=== PATIENT | male | born 1945 | race Caucasian/White ===

== ENCOUNTER 2017-03-10 09:52 | Day surgery (SDC) | payer MEDICARE, OTHER ==
[~2017-03-10] VITALS: Ht 185.4 cm; Wt 89.1 kg
[2017-03-10] MEDS ORDERED: IOHEXOL 350 MG/ML 50 ML BTL (for Cath Lab) OTHER ONE (09:53)
[2017-03-10] MEDS ORDERED: ASPIRIN 81 MG CHEW TAB PO SCH (10:15)
[2017-03-10] MEDS ORDERED: POTA10CA PO (10:25)
[2017-03-10] MEDS ORDERED: AMLO10 PO (10:25)
[2017-03-10] MEDS ORDERED: ASPI81CH CHEW (10:25)
[2017-03-10] MEDS ORDERED: ROSU10 PO (10:25)
[2017-03-10] MEDS ORDERED: NEXI40CA PO (10:25)
[2017-03-10] MEDS ORDERED: ADVA250A INH (10:25)
[2017-03-10 10:31] VITALS: BP 150/99; PULSE 87; RESP 18; TEMP 97.5; O2SAT 97
[2017-03-10 10:53] LABS: AUTOMATED NEUTROPHIL # 4.4 TH/MM3 (1.8-7.7); BASOPHIL # 0.1 TH/MM3 (0-0.2); BASOPHIL % 1.3 % (0.0-2.0); EOSINOPHIL # 0.5 TH/MM3 (0-0.4); EOSINOPHIL % 6.7 % (0.0-4.0); HEMATOCRIT 45.8 % (39.0-51.0); HEMO FLAGS DIFF FINAL; LYMPH % 20.4 % (9.0-44.0); LYMPHOCYTE # 1.5 TH/MM3 (1.0-4.8); MEAN CELL VOLUME 98.4 FL (80.0-100.0); MEAN CORPUSCULAR HEMOGLOBIN 33.3 PG (27.0-34.0); MEAN CORPUSCULAR HGB CONC 33.8 % (32.0-36.0); MONO % 11.2 % (0.0-8.0); NEUT % 60.4 % (16.0-70.0); PLATELET COUNT 231 TH/MM3 (150-450); RED BLOOD COUNT 4.66 MIL/MM3 (4.50-5.90); RED CELL DISTRIBUTION WIDTH 12.7 % (11.6-17.2); WHITE BLOOD COUNT 7.3 TH/MM3 (4.0-11.0)
[2017-03-10 11:07] LABS: PROTHROMBIN TIME - PATIENT 10.9 SEC (9.8-11.6)
[2017-03-10 11:35] LABS: BICARBONATE 26.7 MEQ/L (21.0-32.0); POTASSIUM 4.9 MEQ/L (3.5-5.1)
[2017-03-10] MEDS ORDERED: HEPARIN-NS/PF INJ 1,000 ML ONE (12:12)
--- NOTE | 2017-03-10 13:08 | CATHPROC ---
[facility] HIS Report Study Information Study Number Admission Scheduled Start Study Start [id number] Mar 10 2017 9:52AM 03/10/2017 Mar 10 2017 12:06PM [place] Service Cardiac Catheterization Admit Source Facility Department Transfer in from another acute care facility [facility] - [facility] Physician and Clinical Staff Initial Logan Mejia Account Information Clerkandrey Onofre RN, Jori Carlos cathlab, cathlab Recorder Chun Victoria RCIS(BS) Procedures Performed Procedure Location (Site) Vessel Name Coronary Angiograms LCA Left Coronary Coronary Angiograms RCA Right Coronary LV Gram-hand inj. LV LV Ventricle Equipment Time Public Safety Dispatcher Description Size Mfg Part Number Used/Scraped CATHETER, FR5 SWAN IDANIA 12:07 Zuli FR 5 [id number] *[id number] Used MONITOR TRANSDUCER, TRUWAVE [id number] 12:07 LUU BRANTLEY * Used W/STOCKCOCK *[id number] [id number] *[id number] *[id number] 12:07 MEDLINE INDUSTRIES PACK, CCL CUSTOM * Used *[id number] 12:07 STYLHUNT PACER PEN, SKIN DUAL W/ RULER * Used *[id number] 12:19 NComputing MEDICAL SHEATH, FR5.5 PRELUDE 11CM FR 5 [id number] Used [id number] 12:07 NComputing MEDICAL SHEATH, FR5.5 PRELUDE 11CM FR 5.5 Used 038ACT# [id number] 12:07 NComputing MEDICAL WIRE, 3MMJ .035 180CM 180CM Used *[id number] 12:07 NAMIC MANIFOLD, 4 PORT * Used *[id number] 12:07 NYCOMED OMNIPAQUE, 350 MG, 150ML 150ML [id number] Used [id number] 12:07 DIANE MEDICAL BLANKET,WARM AIR CCL * Used *[id number] 12:07 TERUMO MEDICAL SHEATH, FR4 TERUMO (10CM) FR 4 Used *[id number] History: Current Medications Medication Dosage/Unit Route Frequency Last Date/Time Taken Statins (any) ASA History: Allergies Allergy Reaction Penicillins Hives History: Risk Factors Family History of Hypertension Dyslipidemia Previous IA Previous Heart Failure Premature CAD Yes Yes Yes No Yes Prior Valve Prior PCI Prior CABG Surgery No No No Cerebrovascular Peripheral Artery Chronic Lung On Dialysis Diabetes Disease Disease Disease No No No Yes No History: Symptoms/Diagnosis Selection Items SOB History: Stress Tests Stress or Imaging Studies Performed Yes Standard Exercise Stress Test No Stress Echo No Stress Test SPECT Stress Test SPECT Result Stress Test SPECT Ischemia Risk/Extent Yes Positive Low Stress Test CMR No Cardiac CTA Coronary Calcium Score No No History: Other Disease Selection Items HTN History: Other Current Smoker Method Quit Packs a Day Years Used Pack Years No Cigarettes 8 Years Ago 1 50 50 Labs Hgb (g/dl) Hct (%) WBC (l/cumm) Platelets (thousands) 11.60-17.00 35.00-51.00 4.00-11.00 150.00-450.00 15.5 45.8 7.3 231 Glucose (mg/dl) BUN (mg/dl) Creatinine (mg/dl) BUN:Creatinine (1:x) 74.00-106.00 7.00-18.00 0.50-1.30 10.00-20.00 112 13 0.9 14.4 Na (meq/l) K (meq/l) 136.00-145.00 3.50-5.10 136 4.9 INR (PTT:PT) 0.90-1.10 1 CPK-MB (ng/ML) 0.50-3.60 Not Drawn Medication Medication Total Dose (Bolus/Oral) Medication Total Dosage/Unit 1% XYLOCAINE 20 mL Medications (Bolus/Oral) Medication Time Given Dosage/Unit Administered By Reason 03/10/2017 12:38:47 1% XYLOCAINE 20 mL Logan Richmond PM 20 mL 1% XYLOCAINE given in lab by Logan Richmond in Right Groin via Subcutaneous. Medication (Drip) Medication Time Given Dosage/Unit Concentration/Unit Diluent (ml) Solution 03/10/2017 12:06:27 IV Solutions 0 mL (IV) 500 NaCl .9 PM Patient arrived on IV Solutions given by cathlab, cathlab in Left Hand via Peripheral IV. Pump/Drip F low = 20 ml/hr using NaCl .9. Ordered by Logan Richmond. Initial Case Assessment Cardiovascular HR Rhythm NIBP Chest Pain 82 nsr 145/87 0 Edema Present Skin color Skin None Normal Warm Dry Circulatory - Right Pulses Dorsalis Pedis Femoral 2 2 Scale (0,1,2,3,4,d) Circulatory - Left Pulses Dorsalis Pedis Femoral 2 2 Scale (0,1,2,3,4,d) Neurological State Oriented to time-place- Alert Moves all extremities person Respiration - General Respiration Rate SpO2 (%) (B/min) 15 96 Final Case Assessment Cardiovascular HR Rhythm NIBP Chest Pain 82 nsr 145/81 0 Edema Present Skin color Skin None Normal Warm Dry Circulatory - Right Pulses Dorsalis Pedis Femoral 2 2 Scale (0,1,2,3,4,d) Circulatory - Left Pulses Dorsalis Pedis Femoral 2 2 Scale (0,1,2,3,4,d) Neurological State Oriented to time-place- Alert Moves all extremities person Respiration - General Respiration Rate SpO2 (%) (B/min) 15 96 Chronological Log Time Study Chronological Log 12::18 Patient arrived via Bed. 12:06:18 Patient Name, D.O.B, / Armband Verified By R.N. 12:06:19 Consent signed by the physician and the patient and verified by the [facility] staff. 12:06:19 Pre-op and post- op instructions given; patient acknowledges understanding of instructions. 12:06:20 Verbal Stimulation=2 Physical Stimulation=2 Airway=2 Respiration=2 TOTAL=8. (0=absent, 1=li mited, 2=present) 12:06:21 Presedation assessment performed by [facility] RN. 12:06:22 Immediate Presedation assesment performed by physician. 12:06:23 Patient has been NPO for More than 6Hrs. 12:06:23 Skin Breakdown- none per patient 12:06:24 Patient Warmer Placed on the Table. 12:06:25 Pradeep Prominences Protected 12:06:27 A # 20 IV was noted in the Hand (left). Grade = 0 Patient arrived on IV Solutions given by cathlab, cathne in Left Hand via Peripheral IV. Pump/ Drip Flow = 20 ml/hr 12:06:27 using NaCl .9. Ordered by Logan Richmond. 12:06:27 History and physical on the chart or being dictated. Vitals capture started with the following parameters, Patient=Adult, Interval=5 min, Initial Pr dwyiyl=443 mmHg, 12:15:53 Deflation Rate=5 mmHg, Cuff placed on Right Arm Assessment: Initial Case, HR=82 BPM, Rhythm=nsr, MPER=937/87 mmhg, Chest Pain=0, Edema=None, Co carolyn=Normal, Skin = Warm, Dry Right Pulses: Cesario Ped=2, Femoral=2 12:15:58 Left Pulses: Cesario Ped=2, Femoral=2 Neurological: State=Alert, Ox3, HUGGINS Respiration: Resp=15 B/min, SpO2=96 % 12:16:31 HR=83 bpm, DVGW=264/87 mmhg, SpO2=97.0 %, Resp=13 B/min, Pain=0, Michael=10, Garcia=2 12:17:09 Reference ECG taken 12:21:30 HR=78 bpm, KZVF=006/84 mmhg, SpO2=95.0 %, Resp=15 B/min, Pain=0, Michael=10, Garcia=2 12:22:44 Bilateral groins prepped with 2% chlorhexidine, and draped after a 3 minute waiting time. 12:26:29 HR=76 bpm, YTQU=153/84 mmhg, SpO2=95.0 %, Resp=15 B/min, Pain=0, Michael=10, Garcia=2 12:28:10 MD paged 12:30:37 Pressure channel 1 zeroed. 12:31:28 HR=76 bpm, SEKZ=692/85 mmhg, SpO2=95.0 %, Resp=17 B/min, Pain=0, Michael=10, Garcia=2 12:31:28 MD responded 12:34:04 MD arrived. 12:34:24 Immediate Presedation assesment performed by physician. 12:36:29 HR=79 bpm, CCFB=799/82 mmhg, SpO2=93.0 %, Resp=14 B/min, Pain=0, Michael=10, Garcia=2 Time Out. Correct patient, correct procedure, correct physician, power injector not loaded with contrast with surgical 12:37:55 team present. Time Out Concurred by MD and individual staff in procedure. 12:38:41 Case Start 12:38:43 Verbal Stimulation=2 Physical Stimulation=2 Airway=2 Respiration=2 TOTAL=8. (0=absent, 1=li mited, 2=present) 12:38:47 20 mL 1% XYLOCAINE given in lab by Logan Richmond in Right Groin via Subcutaneous. 12:40:21 Access site was Right Femoral Artery. 12:40:28 A SHEATH, FR4 TERUMO (10CM) FR 4 was advanced into the Fem Art (right) using the Percutaneo us technique. 12:40:34 Saturation: Site=Ao (Aorta) , O2=98 %, Hgb=15.5 gm/dl, Condition=Condition 1. Used in calcu lation. 12:41:28 HR=83 bpm, TJID=261/77 mmhg, SpO2=95.0 %, Resp=18 B/min, Pain=0, Michael=10, Garcia=2 12:41:38 Access site was Right Femoral Vein. 12:41:42 A SHEATH, FR5.5 PRELUDE 11CM FR 5.5 was advanced into the Fem Vein (right) using the Percut aneous technique. 12:41:47 A CATHETER, FR5 SWAN IDANIA MONITOR FR 5 was inserted via Fem Vein (right) Recorded Pressure: PCW, HR=78, Condition=Condition 1 12:44:06 (Pulmonary Capillary Wedge) PCW Recorded Pressure: MPA, HR=83, Condition=Condition 1 12:44:20 (Main Pulmonary Artery) MPA 11/05/19 12:44:30 Saturation: Site=PA (Pulmonary Artery) , O2=81.1 %, Hgb=15.5 gm/dl, Condition=Condition 1. Used in calculation. Recorded Pressure: RV, HR=83, Condition=Condition 1 12:45:17 (Right Ventricle) RV Recorded Pressure: RA, HR=79, Condition=Condition 1 12:45:44 (Right Atrium) RA 12:45:54 Saturation: Site=RA (Right Atrium) , O2=81.8 %, Hgb=15.5 gm/dl, Condition=Condition 1. Used in calculation. 12:46:01 [place] Idania Catheter Removed 12:46:30 HR=81 bpm, MMVM=430/85 mmhg, SpO2=94.0 %, Resp=16 B/min, Pain=0, Michael=10, Garcia=2 A JR 4.0 INFINITI CATHETER FR 4 was advanced over a wire. OMNIPAQUE, 350 MG, 150ML 150ML was us ed for 12:46:36 injections. Recorded Pressure: LV, HR=80, Condition=Condition 1 12:47:36 (Left Ventricle) LV 135/2/14 12:47:47 The LV was manually injected with 10 cc's and visualized. OMNIPAQUE, 350 MG, 150ML 150ML us ed. Recorded Pressure: LV, Ao, HR=82, Condition=Condition 1 12:47:51 (Left Ventricle) LV 131/2/14, (Aorta) Ao 143/76/106 12:48:08 The RCA was injected and visualized at various angles. OMNIPAQUE, 350 MG, 150ML 150ML used . Recorded Pressure: Ao, HR=84, Condition=Condition 1 12:48:15 (Aorta) Ao 138/77/104 12:48:31 Catheter was removed A JL 4.0 INFINITI CATHETER FR 4 was advanced over a wire. OMNIPAQUE, 350 MG, 150ML 150ML was us ed for 12:48:32 injections. 12:50:21 The LCA was injected and visualized at various angles. OMNIPAQUE, 350 MG, 150ML 150ML used . 12:51:33 HR=80 bpm, IWNR=849/81 mmhg, SpO2=94.0 %, Resp=16 B/min, Pain=0, Michael=10, Garcia=2 12:53:09 Catheter was removed 12:53:11 Case End Assessment: Final Case, HR=82 BPM, Rhythm=nsr, SCWT=298/81 mmhg, Chest Pain=0, Edema=None, [place] r=Normal, Skin = Warm, Dry Right Pulses: Cesario Ped=2, Femoral=2 12:53:16 Left Pulses: Cesario Ped=2, Femoral=2 Neurological: State=Alert, Ox3, HUGGINS Respiration: Resp=15 B/min, SpO2=96 % 12:54:13 Catheter(s) removed without difficulty 12:54:15 Sheath removed; pressure applied to access site. 12:54:17 Sterile dressing applied to site 12:54:17 No case complications noted. 12:54:18 Cine recording checked. 12:54:19 Bedside Report will be given. 12:54:21 Contrast Scanned 12:54:23 Verbal Stimulation=2 Physical Stimulation=2 Airway=2 Respiration=2 TOTAL=8. (0=absent, 1=li mited, 2=present) 12:55:06 A Left and Right Heart Cath was performed. 12:55:16 Sheaths removed; pressure applied to access site. 12:56:34 HR=78 bpm, EEDO=851/75 mmhg, SpO2=94.0 %, Resp=15 B/min, Pain=0, Michael=10, Garcia=2 13:01:31 HR=76 bpm, UYSH=714/80 mmhg, SpO2=94.0 %, Resp=19 B/min, Pain=0, Michael=10, Garcia=2 13:06:48 Vitals capture stopped. 13:06:49 Sterile dressing applied to site 13:12:00 Patient moved to stretcher End Study - Contrast Media Used In Study Contrast Total Opened (mL) Total Used (mL) Total Wasted (mL) Omnipaque 50 50 0 End Study - Maximum Contrast Load Max Contrast Load (mL) 494.9 End Study - Radiation Exposure Fluoro Time (minutes) 2.5 End Study - Patient Disposition Complications Transferred To Interventional Outcome No [facility] Holding No attempt made
[2017-03-10] MEDS ORDERED: MISC INFORMATION XX ONE (13:15)
[2017-03-10] MEDS ORDERED: SODIUM CHLORIDE 0.9% FLUSH 10 ML FLUSH IV FLUSH PRN (13:15)
--- NOTE | 2017-03-10 13:35 | MA ---
cc: HUY XIONG M.D. DATE: 03/10/2017 PROCEDURE PERFORMED 1. Right heart catheterization. 2. Left heart catheterization. 3. Left ventriculography. 4. Coronary angiography. INDICATION Worsening cardiac symptoms of severe dyspnea, anginal equivalent, unstable angina, congestive heart failure, small reversible defect in the apical wall, fixed defect in the posterior wall, EF 75%, [place] Cardiovascular Society Class III angina, [place] Heart Association Class III congestive heart failure, coronary artery disease, chronic renal insufficiency, hypertension, hyperlipidemia, multiple cardiac risk factors. PROCEDURE The patient was brought to the cardiac catheterization laboratory, prepped and draped in the usual sterile fashion. 10 cc of 1% lidocaine was used to locally anesthetize the right common femoral artery. A 4 Bhutanese sheath was successfully placed in the right common femoral artery. A 5 Bhutanese sheath was placed in the right common femoral vein. Right heart catheterization was performed first with the following findings: Pulmonary capillary wedge pressure 11/10-7. Pulmonary artery pressure 31/12-19. RV pressure 31/1-6. RA pressure 7/3-3. Cardiac output by Dario 7.5 liters per minute. Cardiac index by Dario 3.5 liters per meter squared per minute. SVR by Dario 1097.4 dynes on room air. FA sat 98%. PA sat 81.1%. RA sat 81.8%. The left heart catheterization was then performed with a 4 Bhutanese JR4 and JL4 catheters with the following findings: LV pressure 140/4-5. Ejection fraction 60%. CORONARY ARTERIES The right coronary artery is dominant. It is ectatic in the proximal segment with relative stenosis up to 30% angiographically. The left main coronary artery has a distal 20% stenosis. The left circumflex vessel has mild ectatic disease in the mid AV groove with mild relative stenosis up to 20% angiographically. The first obtuse marginal vessel has a high takeoff. It is a small vessel with an ostial 20-30% stenosis. The second obtuse marginal vessel is a medium size vessel approaching the apex, tortuous in the ieo-nm-ojkkyo segment with a proximal 50% stenosis. The left circumflex vessel terminates in a small distal posterolateral artery with no significant disease angiographically. The LAD has an ostial proximal 20-30% stenosis. The LAD is transapical. The mid LAD had a long 40-50% stenosis. The first diagonal artery is a medium to large vessel with moderate diffuse disease in the proximal segment up to 50% angiographically, also an ostial 50% stenosis. CONCLUSIONS 1. Mild to moderate three-vessel coronary artery disease in a right-dominant system as detailed above. 2. Normal LV systolic function, ejection fraction 60%. 3. Normal right heart catheterization pressures and normal LVEDP all suggesting that the patient's dyspnea is not cardiac in origin. RECOMMENDATIONS 1. Continue aspirin 81 mg a day. 2. Continue Crestor 10 mg daily. LDL needs to be treated to less than 70. 3. Continue Norvasc 10. 4. Recommend noncardiac evaluation for the patient's shortness of breath. MD DOLORES Payne/RADHA /12:58 PM /1:17 PM
[2017-03-10] MEDS ORDERED: SODIUM CHLORIDE 0.9% FLUSH 10 ML FLUSH IV FLUSH SCH (21:00)
--- NOTE | 2017-03-11 17:50 | EKG ---
Date Performed: 03/10/2017 Time Performed: 10:44:30 PTAGE: 71 years EKG: Sinus rhythm . Incomplete RBBB Borderline ECG NO PREVIOUS TRACING DOCTOR: Madai Cheek Interpretating Date/Time 03/11/2017 17:47:31
== END 2017-03-10 15:22 | disposition home or self-care (01) ==
LOC: HDIC 09:52 → HDOC 09:52
PROVIDERS: ATTEND Internal Medicine Interventional Cardiology
DX: I25.10 Atherosclerotic heart disease of native coronary artery without angina pectoris (principal); I50.9 Heart failure, unspecified; I45.10 Unspecified right bundle-branch block; N18.9 Chronic kidney disease, unspecified; E11.9 Type 2 diabetes mellitus without complications; I10 Essential (primary) hypertension; R06.02 Shortness of breath
CPT/HCPCS: 80048; 85025; 85610; 93005; 93460; C1769; C1893; J1644; Q9967